=== PATIENT | female | born 1975 | race Caucasian/White ===

== ENCOUNTER 2021-09-24 07:18 | Outpatient (CLI) | payer BC, SELFPAY | END 2021-09-24 07:19 | disposition home or self-care (01) | PROVIDERS: PCP Family Medicine; Visit Provider Surgery | DX: Z12.11 Encounter for screening for malignant neoplasm of colon (principal) | CPT/HCPCS: 45378; J2250; J2405; J3010 ==

== ENCOUNTER 2021-10-29 09:13 | Outpatient (CLI) | payer BC, SELFPAY ==
--- NOTE | 2021-10-29 09:15 | MR_ITS ---
[address] [address] Phone:?[phone] Fax:?[phone] Referring Physician Information: Billie Burton [address] [facility] [address] Phone:?[phone] Fax:?[phone] Patient:?Theresa Leonard D.O.B:?1975 Sex:?Female Phone:?[phone] [facility] MRN:?[id number] Exam Date:?10/29/2021 ? EXAM: MRI OF THE RIGHT ANKLE WITHOUT CONTRAST CLINICAL INFORMATION: Female, 46 years old, with right ankle and leg soreness and aching INDICATION: Evaluate medial talus, medial clear space widening PRIOR SURGERY: None reported. PLAIN FILMS: None available. COMPARISONS: No prior MRIs available. TECHNICAL INFORMATION: Using a 1.5T MR scanner and a localizing surface coil: sagittals: PD, T2, STIR coronals: PD, T2 axials: PD, T2 SEDATION: None. CONTRAST: None. FINDINGS: Osseous structures: No stress/occult fracture or other marrow edema/pathology. Os trigonum: No os trigonum or abnormally prominent Stieda's process. Tarsal coalition: No calcaneonavicular, talocalcaneal or cubonavicular coalition. Tibiotalar joint: Effusion: Trace tibiotalar joint effusion anterolaterally Ganglion cyst: None. Osteochondral surfaces: Grade 3 chondral thinning along the anterior and posterior aspects of the tibiotalar articulation (sagittal series 5 images 15- 13). No associated marrow reactive edema. Loose bodies: No demonstrable loose bodies. Subtalar joint: Effusion: Trace subtalar joint effusion extending into the posterior subtalar recess. Articular cartilage: No osteochondral abnormality. Tarsal joints: Talonavicular: Unremarkable. Calcaneocuboid: Unremarkable. Naviculocuneiform: Unremarkable. Tarsometatarsal: Unremarkable. Ligaments: Syndesmotic ligaments:?Thickening and heterogeneity of the anterior talofibular ligament with minimal osseous spurring suggests residua of prior injury. The posterior inferior tibiofibular ligament appears predominantly intact. Lateral ligaments:?The anterior talofibular ligament is not well seen, suggesting residua of chronic high-grade/complete sprain injury. The calcaneofibular and posterior talofibular ligaments are thickened in keeping with chronic incomplete sprain injury. Deltoid ligament:?Thickening, heterogeneity, and amorphous appearance of the superficial and deep deltoid ligaments consistent with residua of chronic incomplete sprain injury. Calcaneonavicular spring ligament:?The superomedial component of the calcaneonavicular spring ligament is grossly intact. Bifurcate and calcaneocuboid ligaments:?Intact lateral calcaneonavicular and medial calcaneocuboid ligaments. The dorsolateral calcaneocuboid ligament is intact. Tendons: Peroneal:?The peroneal tendons are appropriately situated within the retromalleolar groove and the superior peroneal retinaculum is intact. Moderate peroneus brevis tendinosis between the peroneal tubercle of the distal calcaneus with poorly defined low-grade tearing (axial series 3 images 23-29). Mild peroneus longus thickening and tendinosis without tear. Moderate peroneal tenosynovitis. Incidentally noted accessory lateral ankle muscle peroneus quartus. Flexor tendons:?Moderate posterior tibialis insertional tendinosis with fraying at the navicular attachment with mild to moderate tenosynovitis. Flexor digitorum and flexor hallucis longus tendons are intact. Extensor tendons:?The anterior tibialis, extensor digitorum longus, and extensor hallucis longus tendons are intact. No significant tendinopathy and without tenosynovitis, tendon split or tendon disruption. Achilles:?Intact, without tendinopathy or tear. No retrocalcaneal or retro- Achilles bursitis. Sinus tarsi:?The sinus tarsi signal is normal. Plantar aponeurosis: Diffuse thickening of the central cord of the plantar fascia measuring up to 5 mm (coronal series 8 image 20), without plantar fascial tearing. Small plantar calcaneal spur without osseous marrow edema. Plantar musculature:?Moderate fatty atrophy of the abductor digiti minimi muscle belly (coronal series 8 image 19). Neurovascular structures and tarsal tunnel: The posterior tibial neurovascular structures appear unremarkable coursing past the ankle and through the tarsal tunnel. IMPRESSION: 1. Residua of chronic full thickness anterior talofibular ligament sprain/tear. Chronic incomplete sprain injuries of the calcaneofibular, posterior talofibular, and anterior inferior tibiofibular ligaments. 2. Additional chronic incomplete sprain injuries of the superficial and deep deltoid ligaments. 3. Moderate peroneus brevis tendinosis with poorly defined low-grade tearing, with distal reconstitution. Mild peroneus longus tendinosis without tear. Moderate peroneal tenosynovitis. Incidentally noted accessory lateral ankle muscle peroneus quartus. 4. Moderate posterior tibialis insertional tendinosis with fraying at the navicular attachment with mild to moderate tenosynovitis. 5. Residua of chronic plantar fasciitis, without edema signal to suggest ongoing reactive changes. Small plantar calcaneal spur. 6. Minimal to mild tibiotalar degenerative change with chondral thinning anteriorly and posteriorly. Trace tibiotalar and subtalar joint effusions. 7. No stress/occult fracture or other marrow edema/pathology. 8. 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
--- OUTSIDE RECORDS SUMMARY | 2021-10-29 09:16 | XMS_ITS | Clinical Summary ---
:1975 Author Organization [facility] [place] [address] Care Team Providers Name Role Phone Ann Keane MD Primary Care Provider [phone] Allergies Not on File Medications Not on file Active Problems Not on file Social History Tobacco Use Types Packs/Day Years Used Date Never Assessed Sex Assigned at Date Recorded Not on file Plan of Treatment Health Maintenance Due Date Last Done Comments COVID-19 vaccine series (#1) 1975 Tdap 01/08/1987 Depression screening for age 12+ 1988 BMI (ht and wt on same day) for age 18+ 01/08/1994 Hepatitis C screening for age 18-79 01/08/1994 Tetanus booster 1996 Pap test for age 21-65 05/04/2016 05/04/2013, 05/04/2013 Colonoscopy through age 75 01/08/2021 Lipids for age 45-75 01/08/2021 Mammogram for age 45-75 01/08/2021 Influenza for age 9-49 10/31/2021 Results Not on filefrom Last 3 Months Insurance Payer Benefit Plan / Subscriber ID Effective Dates Phone Addre ss Type Group [employer] [id number] 2017-Present [address] [place] [address] [employer] [id number] 2019-Present [address] [place] [address] Theresa Leonard Personal/Famil Self 1975 [address] [facility] y (Home) [facility] [phone] Justen [place] (Work) [id number] Care Teams Mower Operator Relationship Specialty Start Date End Date Ann Keane, PCP - General Obstetrics and Gynecology [address] [place] [id number]
== END 2021-10-29 09:14 | disposition home or self-care (01) ==
LOC: MRI 09:14
PROVIDERS: PCP Family Medicine; Visit Provider Physician Assistant
DX: M25.571 Pain in right ankle and joints of right foot (principal); S93.491A Sprain of other ligament of right ankle, initial encounter; S93.421A Sprain of deltoid ligament of right ankle, initial encounter; M65.871 Other synovitis and tenosynovitis, right ankle and foot; M25.471 Effusion, right ankle
CPT/HCPCS: 73721

== ENCOUNTER 2022-09-10 14:11 | Outpatient (CLI) | payer BC, SELFPAY ==
--- NOTE | 2022-09-10 14:40 | CRLHL7_ITS ---
For Patients: As a result of the Century Cures Act, medical imaging exams and procedure reports are released immediately into your electronic medical record. You may view this report before your referring provider. If you have questions, please contact your health care provider. BILATERAL SCREENING MAMMOGRAM WITH COMPUTER-AIDED DETECTION TECHNIQUE: CC and MLO views were obtained. These mammographic images have been obtained using full-field digital technique. These mammographic images were interpreted with the benefit of computer-aided detection. COMPARISON FILM: 08/14/21, 08/13/20, 07/15/18. FINDINGS: There are scattered areas of fibroglandular density IMPRESSION: There is no radiographic evidence for malignancy. ASSESSMENT: BI-RADS Category 1: Negative RECOMMENDATION: Routine screening mammogram in 1 year. A lay language report of this examination will be provided to the patient. Abdirahman Wall M.D. Diagnostic Radiologist [email or web address]/[email or web address] Transcribed: 4:20 [email or web address] kim/Dictated by: Abdiarhman Wall MD @ 09/11/2022 1:04:00 PM (Electronically Signed)
== END 2022-09-10 14:12 | disposition home or self-care (01) ==
LOC: MAMMO 14:12
PROVIDERS: PCP Family Medicine; Visit Provider Obstetrics & Gynecology
DX: Z12.31 Encounter for screening mammogram for malignant neoplasm of breast (principal)
CPT/HCPCS: 77067

== ENCOUNTER 2023-09-22 13:06 | Outpatient (CLI) | payer BC, SELFPAY ==
--- NOTE | 2023-09-22 14:00 | CRLHL7_ITS ---
For Patients: As a result of the Century Cures Act, medical imaging exams and procedure reports are released immediately into your electronic medical record. You may view this report before your referring provider. If you have questions, please contact your health care provider. BILATERAL SCREENING MAMMOGRAM WITH COMPUTER-AIDED DETECTION AND TOMOSYNTHESIS TECHNIQUE: CC and MLO views were obtained. These mammographic images have been obtained using full-field digital technique. These mammographic images were interpreted with the benefit of computer-aided detection. Breast tomosynthesis was used in this interpretation. COMPARISON FILM: 09/10/22, 08/14/21, 08/13/20. FINDINGS: There are scattered areas of fibroglandular density. IMPRESSION: There is no radiographic evidence for malignancy. ASSESSMENT: BI-RADS Category 1: Negative RECOMMENDATION: Routine screening mammogram in 1 year. A lay language report of this examination will be provided to the patient. ABDIRAHMAN WALTERS M.D. Diagnostic Radiologist [email or web address] Transcribed: 2:[address]/Dictated by: Abdirahman Walters MD @ 09/23/2023 12:34:00 PM (Electronically Signed)
== END 2023-09-22 13:07 | disposition home or self-care (01) ==
LOC: MAMMO 13:06
PROVIDERS: PCP Family Medicine; Visit Provider Obstetrics & Gynecology
DX: Z12.31 Encounter for screening mammogram for malignant neoplasm of breast (principal)
CPT/HCPCS: 77063; 77067

== ENCOUNTER 2024-09-26 12:43 | Outpatient (CLI) | payer BC, SELFPAY ==
--- NOTE | 2024-09-26 13:00 | CRLHL7_ITS ---
For Patients: As a result of the Century Cures Act, medical imaging exams and procedure reports are released immediately into your electronic medical record. You may view this report before your referring provider. If you have questions, please contact your health care provider. INDICATION: BILARERAL SCREENING MAMMOGRAM, ASYMPTOMATIC 49 Y/O FEMALE COMPARISON: 09/22/2023, 09/10/2022, 08/14/2021 TECHNIQUE: Digital mammogram in CC and MLO projections including computer-aided detection (CAD) and tomosynthesis. BREAST COMPOSITION: There are scattered areas of fibroglandular density. FINDINGS: No suspicious findings. ASSESSMENT: BI-RADS 1 Negative RECOMMENDATION: Annual screening mammogram. A lay language report of this examination will be provided to the patient. Dictated by: Rani Grace MD @ 09/27/2024 14:36:32 (Electronically Signed)
== END 2024-09-26 12:44 | disposition home or self-care (01) ==
LOC: MAMMO 12:44
PROVIDERS: PCP Family Medicine; Visit Provider Obstetrics & Gynecology
DX: Z12.31 Encounter for screening mammogram for malignant neoplasm of breast (principal)
CPT/HCPCS: 77063; 77067